=== PATIENT | female | born 1970 | race Hispanic/Latino ===

== ENCOUNTER 2020-12-03 21:51 | Emergency (ER) | payer SELFPAY ==
--- NOTE | 2020-12-03 21:58 | Emergency Department Report ---
History of Present Illness - General Chief Complaint: Overdose Stated Complaint: POSS OVERDOSE Time Seen by Provider: 12/03/20 21:52 Source: patient, EMS Mode of arrival: Stretcher Limitations: No Limitations - History of Present Illness Initial Comments: Patient is a 52-year-old female that presents emergency room with EMS for an overdose. Report received from EMS. EMS states that the patient was found unresponsive and not breathing and they gave her Narcan IV and the patient woke up. Patient's vital signs have been stable ever since receiving Narcan. Patient's oxygen saturation 100%. Patient is answering questions appropriately. Patient states she was trying to go to sleep. Patient denies suicidal homicidal ideations. Patient states she took Klonopin, Haldol and one of her friend's [employer]'s. Patient denies pain. Patient states she does not want to be evaluated further. Patient states she is feeling fine. Patient answering questions appropriate. Patient is alert and oriented x4. Patient is oriented to self, time, place, situation. Patient denies suicidal and homicidal ideations. Patient denies suicide attempt. Patient denies recent travel. Patient denies recent international travel. Patient denies exposure to the novel coronavirus. Patient denies sick contacts. Patient denies fever and chills. Patient denies cough. Patient denies diarrhea. Patient denies coming in contact with anybody with symptoms of the novel coronavirus. Complaint: accidental overdose -: Sudden Intent: want to go to sleep How Overdose Was Discovered: called family/friend Treatments Prior to Arrival: oxygen, narcan, IV fluids - Related Data Allergies Allergy/AdvReac Type Severity Reaction Status Date / Time No Known Allergies Allergy Unverified 07/10/15 09:33 ED Review of Systems ROS: Stated complaint: POSS OVERDOSE Other details as noted in HPI Constitutional: denies: chills, fever Eyes: denies: eye pain, eye discharge, vision change ENT: denies: ear pain, throat pain Respiratory: denies: cough, shortness of breath, wheezing Cardiovascular: denies: chest pain, palpitations Endocrine: no symptoms reported Gastrointestinal: denies: abdominal pain, nausea, diarrhea Genitourinary: denies: urgency, dysuria, discharge Musculoskeletal: denies: back pain, joint swelling, arthralgia Skin: denies: rash, lesions Neurological: denies: headache, weakness, paresthesias Psychiatric: denies: anxiety, depression, auditory hallucinations, visual hallucinations, homicidal thoughts, suicidal thoughts Hematological/Lymphatic: denies: easy bleeding, easy bruising ED Past Medical Hx - Past Medical History Previous Medical History?: Yes Hx GERD: Yes Hx Psychiatric Treatment: Yes (Anxiety) - Surgical History Past Surgical History?: No - Family History Family history: no significant - Social History Smoking Status: Current Every Day Smoker Substance Use Type: Alcohol, Other ED Physical Exam - General Limitations: No Limitations General appearance: alert, in no apparent distress - Head Head exam: Present: atraumatic, normocephalic - Eye Eye exam: Present: normal appearance, PERRL Pupils: Present: normal accommodation - ENT ENT exam: Present: mucous membranes moist - Neck Neck exam: Present: normal inspection - Respiratory Respiratory exam: Present: normal lung sounds bilaterally. Absent: respiratory distress - Cardiovascular Cardiovascular Exam: Present: regular rate, normal rhythm. Absent: systolic murmur, diastolic murmur, rubs, gallop - GI/Abdominal GI/Abdominal exam: Present: soft, normal bowel sounds. Absent: distended, ten derness, guarding - Extremities Exam Extremities exam: Present: normal inspection, full ROM. Absent: tenderness - Back Exam Back exam: Present: normal inspection, full ROM. Absent: tenderness - Neurological Exam Neurological exam: Present: alert, oriented X3, CN II-XII intact, normal gait - Psychiatric Psychiatric exam: Present: normal affect, normal mood - Skin Skin exam: Present: warm, dry, intact, normal color. Absent: rash ED Course - Reevaluation(s) Reevaluation #1: Report received from EMS. Radio report also received from EMS prior to arrival. Impression report received from EMS once they arrive. After initial evaluation, the patient states she does not want to be further evaluated. Patient had a medical clearance exam. Patient is alert and oriented x4. Patient answering all questions appropriate. I discussed the risk with patient. Patient voiced understanding of the risk. Patient signed AMA form. Patient is leaving the hospital AGAINST MEDICAL ADVICE. Even though the patient is leaving the hospital management of advice, the patient will be given a formal discharge. 12/03/20 21:56 ED Medical Decision Making - Medical Decision Making Patient is a 50-year-old female that presents emergency room for a possible overdose. Patient was found by EMS to have pinpoint pupils, decreased respirations and altered mental status. Patient was given Narcan the patient woke up and is alert and oriented x4. Patient answering all questions appropriate. Patient vital signs are stable. I discussed evaluation with patient patient states she does not want to be evaluated further in the emergency room. I discussed the risk with patient. Patient voiced understanding the risk. Patient signed AMA form. Patient given a formal discharge even though she is leaving the hospital AGAINST MEDICAL ADVICE. Patient refused vital signs. - Differential Diagnosis Overdose, electrolyte imbalance, dehydration, Critical care attestation.: If time is entered above; I have spent that time in minutes in the direct care of this critically ill patient, excluding procedure time. ED Disposition Clinical Impression: Overdose Qualifiers: Encounter type: initial encounter Injury intent: accidental or unintentional Qualified Code(s): T50.901A - Poisoning by unspecified drugs, medicaments and biological substances, accidental (unintentional), initial encounter Disposition: DC-07 LEFT AGAINST MED ADVICE Is pt being admited?: No Does the pt Need Aspirin: No Condition: Critical Instructions: Accidental Drug Poisoning, Adult Additional Instructions: Patient to follow-up with primary care in 2 to 3 days. Patient to avoid drug and alcohol use.. Patient to rest. Patient to increase water. Patient to avoid strenuous exercise or heavy lifting until cleared by [employer] MACHINE OPERATOR. Patient to take Tylenol or ibuprofen as needed for pain. Patient to return to the ER if condition worsens, changes or new symptoms arise. Referrals: PRIMARY CARE, [Primary Care Provider] - 3-5 Days Time of Disposition: 21:57
== END 2020-12-03 22:15 | disposition left against medical advice (07) ==
LOC: ED 21:51
DX: T50.901A Poisoning by unspecified drugs, medicaments and biological substances, accidental (unintentional), initial encounter (principal); K21.9 Gastro-esophageal reflux disease without esophagitis; F41.9 Anxiety disorder, unspecified; F17.200 Nicotine dependence, unspecified, uncomplicated; Y92.89 Other specified places as the place of occurrence of the external cause
CPT/HCPCS: 99282